=== PATIENT | male | born 1990 | race Caucasian/White ===

== ENCOUNTER 2023-08-25 10:45 | Emergency (ER) | payer BC, SELFPAY ==
--- NOTE | 2023-08-25 11:08 | CRLHL7_ITS ---
For Patients: As a result of the Cures Act, medical imaging exams and procedure reports are released immediately into your electronic medical record. You may view this report before your referring provider. If you have questions, please contact your health care provider. INDICATION: Injury, diffuse pain. TECHNIQUE: Three views of the right knee. FINDINGS: Possible knee joint effusion. Otherwise normal. No fracture or dislocation. No degenerative change. Dictated by Dale Guardado MD @ 08/25/2023 12:29:00 PM (Electronically Signed)
[2023-08-25 11:09] VITALS: BP 127/84; PULSE 84; RESP 16; TEMP 37.2; O2SAT 98; BMI 37.6
--- NOTE | 2023-08-25 11:15 | ED.GENADULT ---
HPI - General Adult General Chief complaint: Extremity Pain/Injury, Lower Stated complaint: Dislocated R knee Time Seen by Provider: 08/25/23 10:52 Source: patient Mode of arrival: ambulatory Limitations: no limitations History of Present Illness HPI narrative: 33-year-old male coming in today with right-sided knee pain. Patient states he was playing basketball today when he came down from a jump planted his foot and twisted, his knee cap dislocated. When he fell to the ground, his knee cap popped back into place. He fell backwards onto his buttocks. Did not hit his knee on the ground. He is now able to walk but he feels unsteady. Every now and then he feels a jolt of pain through the knee. This has not happened to him in the past. He denies any joint surgeries before. He does smoke. He denies popping, clicking. Knee feels slightly more stiff than usual now. Related Data Home Medications Medication Instructions Recorded Confirmed No Known Home Medications 08/25/23 08/25/23 Allergies Allergy/AdvReac Type Severity Reaction Status Date / Time No Known Drug Allergies Allergy Verified 08/25/23 11:09 Review of Systems Status of ROS: Reports: 6 or more systems reviewed and unremarkable except as noted in History and below Exam Narrative: Exam Narrative: Well-nourished well-developed patient in no acute distress. Alert and oriented. Answers questions appropriately. Mood and affect are appropriate. Thoughts are goal oriented and rational. No tangential or magical thinking noted. Patient speaks in full sentences without needing to catch his breath. Smells heavily of cigarette smoke. HEENT: Normocephalic atraumatic. Pupils are equally round reactive to light. Extraocular muscles are intact. Conjunctivae are moist without any icterus noted. Moist mucous membranes. Extremities: Bilateral lower extremities are without edema. Normal DP and PT pulses. Knee has normal appearance. No valgus or varus laxity. Negative anterior and posterior drawer. No pain with compression of the patella. He has a negative moving patellar apprehension test. However patient is afraid to walk on it because he states that it feels unstable. Skin: Well perfused without any obvious rashes. Const: Vital Signs, click to edit/add: Vital Signs - 24 hr 08/25/23 11:09 Temperature 98.9 F Pulse Rate [Right Pulse Oximeter] 84 Respiratory Rate 16 Blood Pressure [Ri ght Upper Arm] 127/84 Pulse Oximetry 98 Oxygen Delivery Me thod Room Air Course Course ED Course: X-ray of the knee was done, read by me, does not show any acute pathology. Vital Signs Vital signs: Initial Vital Signs Temperature 98.9 F 08/25/23 11:09 Temperature Source Temporal Artery Scan 08/25/23 11:09 Pulse Rate 84 08/25/23 11:09 Pulse Rhythm Regular 08/25/23 11:09 Respiratory Rate 16 08/25/23 11:09 Blood Pressure 127/84 08/25/23 11:09 Blood Pressure Mean 98 08/25/23 11:09 Blood Pressure Position Sitting 08/25/23 11:09 Pulse Oximetry 98 08/25/23 11:09 Oxygen Delivery Method Room Air 08/25/23 11:09 Vital Signs Temperature 98.9 F 08/25/23 11:09 Pulse Rate 84 08/25/23 11:09 Respiratory Rate 16 08/25/23 11:09 Blood Pressure 127/84 08/25/23 11:09 Pulse Oximetry 98 08/25/23 11:09 Oxygen Delivery Method Room Air 08/25/23 11:09 Temperature 98.9 F 08/25/23 11:09 Pulse Rate 84 08/25/23 11:09 Respiratory Rate 16 08/25/23 11:09 Blood Pressure 127/84 08/25/23 11:09 Pulse Oximetry 98 08/25/23 11:09 Oxygen Delivery Method Room Air 08/25/23 11:09 Medical Decision Making MDM Narrative Medical decision making narrative: Dislocation of the patella resolved spontaneously. Place the patient is a knee immobilizer for stability. Recommend he follow up with primary care provider in the next 7-10 days to discuss strengthening exercises. Discharge Plan Discharge Clinical Impression: Closed patellar dislocation Patient Disposition: Home, Self-Care Condition: Stable Additional Instructions: Wear knee brace at all times for at least a week to help with stability. If you feel like you are not improving follow-up with Orthopedics, otherwise follow-up with your primary care provider in about a week to discuss strengthening exercises. Prescriptions: No Action No Known Home Medications Follow Up/Referrals: Provider,Not a Local [Primary Care Provider] - Stand Alone Forms: [facility] Management Info Instructions
== END 2023-08-25 12:36 | disposition home or self-care (01) ==
PROVIDERS: Emergency Provider Family Medicine
DX: S83.004A Unspecified dislocation of right patella, initial encounter (principal); X50.1XXA Overexertion from prolonged static or awkward postures, initial encounter; Y93.67 Activity, basketball
CPT/HCPCS: 73562; 99283; 99284

== ENCOUNTER 2023-09-30 08:17 | Outpatient (CLI) | payer BC, SELFPAY | END 2023-09-30 08:18 | disposition home or self-care (01) | LOC: NFLDREF 10-04 10:39 | PROVIDERS: PCP Family Medicine; Referring Provider Family Medicine; Visit Provider Family Medicine | DX: Z13.220 Encounter for screening for lipoid disorders (principal); Z13.1 Encounter for screening for diabetes mellitus | CPT/HCPCS: 80061; 82947 ==